=== PATIENT | male | born 1990 | race Caucasian/White ===

== ENCOUNTER 2021-05-15 15:54 | Emergency (ER) | payer SELFPAY ==
[~2021-05-15] VITALS: Ht 193 cm; Wt 118.2 kg
[2021-05-15 16:46] VITALS: BP 154/85
[2021-05-15] MEDS ORDERED: CLIN300C54 PO (19:24)
== END 2021-05-15 19:47 | disposition home or self-care (01) ==
LOC: ER 15:54
DX: A49.9 Bacterial infection, unspecified (principal); J45.909 Unspecified asthma, uncomplicated; Z88.0 Allergy status to penicillin; Z88.2 Allergy status to sulfonamides; Z79.2 Long term (current) use of antibiotics
CPT/HCPCS: 99283

== ENCOUNTER 2021-05-18 13:09 | Emergency (ER) | payer MEDICAID ==
[~2021-05-18] VITALS: Ht 193 cm; Wt 118.2 kg
[~2021-05-18 13:09] MED LIST: CLIN300C54 PO
[2021-05-18 13:15] VITALS: BP 160/91
[2021-05-18] MEDS ORDERED: sulfamethoxazole/trimethoprim DS (800/160mg) tablet PO ONE (15:30)
[2021-05-18] MEDS ORDERED: SULF1TAB49 PO (15:50)
== END 2021-05-18 15:56 | disposition home or self-care (01) ==
LOC: ER 13:10
DX: J45.909 Unspecified asthma, uncomplicated (principal); Z88.0 Allergy status to penicillin; Z79.899 Other long term (current) drug therapy
CPT/HCPCS: 99284